=== PATIENT | male | born 1960 | race Caucasian/White ===

== ENCOUNTER 2020-11-10 18:41 | Observation (INO) ==
[2020-11-10] MEDS ORDERED: Naloxone 0.4 MG/ML INJ IVP PRN (20:42)
[2020-11-10] MEDS ORDERED: Melatonin 3 MG TABLET PO PRN (20:42)
[2020-11-10] MEDS ORDERED: Ondansetron 4 MG/2 ML VIAL IVP PRN (20:42)
[2020-11-10] MEDS: *HR* HYDROcodone/Acet 5/325 mg TABLET PO PRN (22:52)
[2020-11-10] MEDS: Fluticasone Propionate Nasal 50 MCG/SPRAY BOTTLE NS SCH (22:53)
[2020-11-11] MEDS ORDERED: D5% in Water 1,000 ML IVC PRN (00:04)
[2020-11-11] MEDS ORDERED: Dextrose Gel 15 GM/37.5 ML TUBE PO PRN ×2 (00:04)
[2020-11-11] MEDS ORDERED: *HR* Dextrose 50 % in Water (Vial) 50 ML VIAL IVP PRN (00:04)
[2020-11-11 04:38] LABS: Basophils # 0.1 K/mcL (0.0-0.2); Basophils % 0.6 %; Eosinophils # 0.2 K/mcL (0.0-0.6); Eosinophils % 2.4 %; Hemoglobin 14.3 g/dL (12.9-16.9); Immature Granulocytes % 0.6 % (0-4); Lymphocytes # 4.4 K/mcL (0.6-4.6); Lymphocytes % 44.9 %; Mean Corpuscular HGB Conc 32.5 g/dL (31.6-35.5); Mean Corpuscular Hemoglobin 27.8 pg (28.0-33.3); Mean Corpuscular Volume 85.4 fL (83.0-100.0); Mean Platelet Volume 8.8 fL (9.4-12.4); Monocytes # 0.9 K/mcL (0.0-1.3); Monocytes % 9.1 %; Neutrophils # 4.1 K/mcL (1.6-8.9); Platelet Count 375 K/mcL (140-400); Red Blood Count 5.15 M/mcL (4.19-5.50); Red Cell Distribution Width 15.3 % (11.5-14.5); Segmented Neutrophils % 42.4 %; White Blood Count 9.7 K/mcL (4.3-11.1)
[2020-11-11 04:43] LABS: INR 1.1; Prothrombin Time 12.4 Seconds (9.4-12.1)
[2020-11-11 05:00] LABS: BUN/Creatinine Ratio 28 (6-26); Blood Urea Nitrogen 16 mg/dL (8-23); Carbon Dioxide 24 mEq/L (23-29); Chloride 103 mEq/L (98-107); Glucose 195 mg/dL (70-105); Magnesium 1.9 mg/dL (1.6-2.6); Osmolality,Calculated 283 (280-300); Potassium 4.4 mEq/L (3.5-5.1); Sodium 133 mEq/L (136-145); eGFR For African Americans > 60 (> 60); eGFR For Non-African Americans > 60 (> 60)
[2020-11-11] MEDS: *HR* HYDROcodone/Acet 5/325 mg TABLET PO PRN ×4 (05:00→20:02)
[2020-11-11 05:03] LABS: Estimated Average Glucose 235 mg/dl; Hemoglobin A1C 9.8 %
[2020-11-11] MEDS: Insulin LISPRO 300 UNITS/3 ML VIAL SUBQ SCH ×4 (05:54→20:04)
[2020-11-11] MEDS: Loratadine 10 MG TABLET PO SCH (08:12)
[2020-11-11] MEDS: Aspirin Enteric Coated 81 MG Tablet PO SCH (08:12)
[2020-11-11] MEDS: amLODIPine 5 MG TABLET PO SCH (08:12)
[2020-11-11] MEDS: Acetaminophen 325 MG TABLET PO PRN (12:01)
[2020-11-11] MEDS: Doxycycline 100 MG CAPSULE PO SCH (20:02)
[2020-11-11] MEDS: Fluticasone Propionate Nasal 50 MCG/SPRAY BOTTLE NS SCH (20:04)
[2020-11-12] MEDS: *HR* HYDROcodone/Acet 5/325 mg TABLET PO PRN ×4 (00:07→20:31)
[2020-11-12 02:49] LABS: Basophils # 0.1 K/mcL (0.0-0.2); Basophils % 0.6 %; Eosinophils # 0.2 K/mcL (0.0-0.6); Eosinophils % 2.3 %; Hematocrit 42.2 % (37.5-50.1); Immature Granulocytes % 0.5 % (0-4); Lymphocytes % 44.3 %; Mean Corpuscular HGB Conc 33.2 g/dL (31.6-35.5); Mean Corpuscular Hemoglobin 28.3 pg (28.0-33.3); Mean Corpuscular Volume 85.3 fL (83.0-100.0); Mean Platelet Volume 8.7 fL (9.4-12.4); Monocytes % 10.6 %; Platelet Count 356 K/mcL (140-400); Red Blood Count 4.95 M/mcL (4.19-5.50); Red Cell Distribution Width 15.5 % (11.5-14.5); Segmented Neutrophils % 41.7 %; White Blood Count 9.6 K/mcL (4.3-11.1)
[2020-11-12 02:51] LABS: Lymphocytes # 4.3 K/mcL (0.6-4.6)
[2020-11-12] MEDS: Acetaminophen 325 MG TABLET PO PRN (03:03)
[2020-11-12 03:17] LABS: BUN/Creatinine Ratio 26 (6-26); Blood Urea Nitrogen 16 mg/dL (8-23); Calcium 8.6 mg/dL (8.6-10.3); Carbon Dioxide 24 mEq/L (23-29); Chloride 102 mEq/L (98-107); Glucose 216 mg/dL (70-105); Osmolality,Calculated 282 (280-300); Potassium 4.2 mEq/L (3.5-5.1); Sodium 132 mEq/L (136-145); eGFR For African Americans > 60 (> 60); eGFR For Non-African Americans > 60 (> 60)
[2020-11-12] MEDS: *HR* Heparin 5,000 UNIT/ML VIAL SQ SCH ×2 (05:28→17:05)
[2020-11-12] MEDS: Aspirin Enteric Coated 81 MG Tablet PO SCH (07:53)
[2020-11-12] MEDS: amLODIPine 5 MG TABLET PO SCH (07:54)
[2020-11-12] MEDS: Loratadine 10 MG TABLET PO SCH (07:54)
[2020-11-12] MEDS: Doxycycline 100 MG CAPSULE PO SCH (07:54)
[2020-11-12] MEDS: Insulin LISPRO 300 UNITS/3 ML VIAL SUBQ SCH ×4 (07:55→20:21)
[2020-11-12] MEDS ORDERED: Doxycycline 100 MG in 0.9 % Sodium Chloride Mini Bag 100 ML IVPB SCH (09:00)
[2020-11-12] MEDS: Doxycycline 100 MG in 0.9 % Sodium Chloride Mini Bag 100 ML IVPB SCH (20:17)
[2020-11-12] MEDS: Fluticasone Propionate Nasal 50 MCG/SPRAY BOTTLE NS SCH (20:21)
[2020-11-12] MEDS ORDERED: Insulin DETEMIR 100 UNIT/ML X5UNITS SUBQ SCH ×2 (21:00→22:30)
[2020-11-12] MEDS ORDERED: risperiDONE 1 MG TABLET PO SCH (21:00)
[2020-11-13] MEDS: Doxycycline 100 MG in 0.9 % Sodium Chloride Mini Bag 100 ML IVPB SCH (05:06)
[2020-11-13] MEDS: *HR* Heparin 5,000 UNIT/ML VIAL SQ SCH (05:07)
[2020-11-13] MEDS: Aspirin Enteric Coated 81 MG Tablet PO SCH (08:33)
[2020-11-13] MEDS: amLODIPine 5 MG TABLET PO SCH (08:34)
[2020-11-13] MEDS: Loratadine 10 MG TABLET PO SCH (08:34)
[2020-11-13] MEDS: Insulin LISPRO 300 UNITS/3 ML VIAL SUBQ SCH ×2 (08:35→11:51)
[2020-11-13 10:45] VITALS: O2SAT 96
[2020-11-13] MEDS: *HR* HYDROcodone/Acet 5/325 mg TABLET PO PRN (11:55)
[2020-11-13 14:03] VITALS: BP 119/74; PULSE 85; TEMP 98.4
== END 2020-11-13 16:31 | disposition home or self-care (01) ==
LOC: 3NENU → SUATTDRO 19:31
PROVIDERS: ADMIT Pharmacist; ATTEND Internal Medicine

== ENCOUNTER 2021-07-19 16:43 | Inpatient (IN) ==
[2021-07-19 17:57] LABS: Basophils # 0.1 K/mcL (0.0-0.2); Basophils % 0.5 %; Eosinophils # 0.2 K/mcL (0.0-0.6); Immature Granulocytes % 0.6 % (0-4); Lymphocytes # 4.3 K/mcL (0.6-4.6); Mean Corpuscular HGB Conc 32.6 g/dL (31.6-35.5); Mean Corpuscular Hemoglobin 27.2 pg (28.0-33.3); Mean Corpuscular Volume 83.3 fL (83.0-100.0); Mean Platelet Volume 9.9 fL (9.4-12.4); Monocytes # 1.1 K/mcL (0.0-1.3); Monocytes % 11.4 %; Neutrophils # 3.9 K/mcL (1.6-8.9); Platelet Count 261 K/mcL (140-400); Red Blood Count 5.52 M/mcL (4.19-5.50); Red Cell Distribution Width 14.9 % (11.5-14.5); Segmented Neutrophils % 40.5 %; White Blood Count 9.5 K/mcL (4.3-11.1)
[2021-07-19 18:17] LABS: Alanine Aminotransferase 54 Units/L (7-52); Albumin 3.2 g/dL (3.5-5.7); Albumin/Globulin Ratio 0.8 (1.1-2.2); Alkaline Phosphatase 118 Units/L (34-104); Aspartate Amino Transferase 47 Units/L (13-39); BUN/Creatinine Ratio 22 (6-26); Bilirubin,Total 0.2 mg/dL (0.3-1.0); Blood Urea Nitrogen 17 mg/dL (8-23); Calcium 8.6 mg/dL (8.6-10.3); Carbon Dioxide 26 mEq/L (23-29); Chloride 106 mEq/L (98-107); Glucose 255 mg/dL (70-105); Osmolality,Calculated 282 (280-300); Potassium 3.9 mEq/L (3.5-5.1); Sodium 131 mEq/L (136-145); Total Protein 7.2 g/dL (6.4-8.9); eGFR For African Americans > 60 (> 60); eGFR For Non-African Americans > 60 (> 60)
[2021-07-19] MEDS ORDERED: Vancomycin 1,250 MG/262.5 ML IV.SOLN IVPB ONE (19:42)
[2021-07-19] MEDS ORDERED: Piperacillin/Tazobactam 3.375 GM in 0.9 % Sodium Chloride Mini Bag 100 ML IVPB ONE (19:42)
[2021-07-19] MEDS ORDERED: Naloxone 0.4 MG/ML INJ IVP PRN (20:28)
[2021-07-19] MEDS ORDERED: Acetaminophen 325 MG TABLET PO PRN (20:28)
[2021-07-19] MEDS ORDERED: Ondansetron 4 MG/2 ML VIAL IVP PRN (20:28)
[2021-07-19] MEDS ORDERED: *HR* Dextrose 50 % in Water (Syg) 50 ML SYRINGE IVP PRN (20:31)
[2021-07-19] MEDS ORDERED: D5% in Water 1,000 ML IVC PRN (20:31)
[2021-07-19] MEDS ORDERED: Dextrose 4 GM Chewable Tablets PO PRN ×2 (20:31)
[2021-07-20] MEDS: Piperacillin/Tazobactam 3.375 GM in 0.9 % Sodium Chloride Mini Bag 100 ML IVPB SCH ×3 (04:14→19:11)
[2021-07-20 05:56] LABS: Basophils # 0.1 K/mcL (0.0-0.2); Basophils % 0.8 %; Eosinophils # 0.2 K/mcL (0.0-0.6); Eosinophils % 2.4 %; Hematocrit 45.5 % (37.5-50.1); Hemoglobin 14.9 g/dL (12.9-16.9); Immature Granulocytes % 0.5 % (0-4); Lymphocytes # 3.4 K/mcL (0.6-4.6); Mean Corpuscular HGB Conc 32.7 g/dL (31.6-35.5); Mean Corpuscular Volume 82.4 fL (83.0-100.0); Mean Platelet Volume 9.6 fL (9.4-12.4); Monocytes % 10.4 %; Neutrophils # 4.5 K/mcL (1.6-8.9); Platelet Count 278 K/mcL (140-400); Red Blood Count 5.52 M/mcL (4.19-5.50); Red Cell Distribution Width 14.9 % (11.5-14.5); Segmented Neutrophils % 48.9 %; White Blood Count 9.2 K/mcL (4.3-11.1)
[2021-07-20 06:08] LABS: Prothrombin Time 10.7 Seconds (9.4-12.1)
[2021-07-20 06:09] LABS: Alanine Aminotransferase 57 Units/L (7-52); Albumin 3.2 g/dL (3.5-5.7); Albumin/Globulin Ratio 0.8 (1.1-2.2); Alkaline Phosphatase 111 Units/L (34-104); Aspartate Amino Transferase 53 Units/L (13-39); BUN/Creatinine Ratio 19 (6-26); Bilirubin,Direct 0.1 mg/dL (0.0-0.2); Bilirubin,Indirect 0.3 mg/dL (0.0-1.0); Bilirubin,Total 0.4 mg/dL (0.3-1.0); Blood Urea Nitrogen 14 mg/dL (8-23); Calcium 8.6 mg/dL (8.6-10.3); Carbon Dioxide 23 mEq/L (23-29); Chloride 101 mEq/L (98-107); Globulin 4.2 g/dL (2.4-3.5); Glucose 308 mg/dL (70-105); Magnesium 1.8 mg/dL (1.6-2.6); Osmolality,Calculated 286 (280-300); Phosphorous 2.7 mg/dL (2.7-4.5); Potassium 4.1 mEq/L (3.5-5.1); Sodium 132 mEq/L (136-145); Total Protein 7.4 g/dL (6.4-8.9); eGFR For African Americans > 60 (> 60); eGFR For Non-African Americans > 60 (> 60)
[2021-07-20 07:45] LABS: Estimated Average Glucose 326 mg/dl
[2021-07-20] MEDS ORDERED: *HR* OxyCODONE Immed Rel 5 MG TABLET PO PRN (08:31)
[2021-07-20] MEDS: Folic Acid 1 MG TABLET PO SCH (08:55)
[2021-07-20] MEDS: Benzonatate 100 MG CAPSULE PO SCH ×4 (08:56→21:19)
[2021-07-20] MEDS: Aspirin 325 MG TABLET PO SCH (08:56)
[2021-07-20] MEDS: amLODIPine 5 MG TABLET PO SCH (08:56)
[2021-07-20] MEDS: Insulin LISPRO 300 UNITS/3 ML VIAL SUBQ SCH ×3 (08:57→16:43)
[2021-07-20] MEDS: Loratadine 10 MG TABLET PO SCH (08:58)
[2021-07-20] MEDS ORDERED: Cholecalciferol (D-3) 1,000 UNIT (25MCG) TABLET PO SCH (09:00)
[2021-07-20 09:07] LABS: Bilirubin,Urine Negative (Negative); Blood,Urine Negative (Negative); Clarity,Urine Clear (Clear); Color,Urine Light-Yellow (Yellow); Glucose,Urine (UA) >=1000 mg/dL (Normal); Ketones,Urine Negative (Negative); Leukocyte Esterase,Urine Negative (Negative); Nitrite,Urine Negative (Negative); PH,Urine 6.5 pH Units (5.0-8.0); Protein,Urine Trace mg/dL (Neg-Trace); RBC,Urine 0-3 per hpf (0-3); Specific Gravity,Urine 1.029 (1.010-1.025); Urobilinogen,Urine Normal (Normal); WBC,Urine 0-3 per hpf (0-3)
[2021-07-20 09:13] LABS: C-Reactive Protein < 5 mg/L (Less than 10)
[2021-07-20] MEDS: Vancomycin 1,250 MG/262.5 ML IV.SOLN IVPB SCH ×2 (10:07→22:47)
[2021-07-20] MEDS ORDERED: Isovue-370 500 ML BOTTLE IVP ONE (10:31)
[2021-07-20] MEDS ORDERED: *HR* Enoxaparin 80 MG/0.8 ML SYRINGE SQ ONE ×2 (10:42→18:45)
[2021-07-20] MEDS ORDERED: Melatonin 3 MG TABLET PO SCH (21:00)
[2021-07-20] MEDS ORDERED: risperiDONE 1 MG TABLET PO SCH (21:00)
[2021-07-20] MEDS ORDERED: Insulin LISPRO 300 UNITS/3 ML VIAL SUBQ SCH (21:00)
[2021-07-20] MEDS ORDERED: traZODone 50 MG TABLET PO SCH (21:00)
[2021-07-20] MEDS ORDERED: NON-FORMULARY MEDICATION 1 EACH EACH (Atorvastatin Calcium [Lipitor] 80 MG Tablet) PO SCH (21:00)
[2021-07-20] MEDS: Cholecalciferol (D-3) 1,000 UNIT (25MCG) TABLET PO SCH (21:19)
[2021-07-20] MEDS: *HR* Enoxaparin 100 MG/ML SYRINGE SQ SCH (21:19)
[2021-07-20] MEDS: SALSALATE 500 MG PO SCH (22:43)
[2021-07-21 03:05] LABS: Basophils # 0.1 K/mcL (0.0-0.2); Basophils % 0.9 %; Eosinophils # 0.2 K/mcL (0.0-0.6); Eosinophils % 2.4 %; Hematocrit 43.2 % (37.5-50.1); Hemoglobin 14.3 g/dL (12.9-16.9); Immature Granulocytes % 0.4 % (0-4); Lymphocytes # 4.1 K/mcL (0.6-4.6); Lymphocytes % 48.5 %; Mean Corpuscular HGB Conc 33.1 g/dL (31.6-35.5); Mean Corpuscular Hemoglobin 27.3 pg (28.0-33.3); Mean Corpuscular Volume 82.4 fL (83.0-100.0); Mean Platelet Volume 9.7 fL (9.4-12.4); Monocytes # 0.8 K/mcL (0.0-1.3); Monocytes % 9.7 %; Neutrophils # 3.2 K/mcL (1.6-8.9); Platelet Count 267 K/mcL (140-400); Red Blood Count 5.24 M/mcL (4.19-5.50); Red Cell Distribution Width 14.7 % (11.5-14.5); Segmented Neutrophils % 38.1 %; White Blood Count 8.4 K/mcL (4.3-11.1)
[2021-07-21 03:27] LABS: BUN/Creatinine Ratio 20 (6-26); Blood Urea Nitrogen 16 mg/dL (8-23); Calcium 8.3 mg/dL (8.6-10.3); Carbon Dioxide 23 mEq/L (23-29); Chloride 102 mEq/L (98-107); Glucose 314 mg/dL (70-105); Osmolality,Calculated 287 (280-300); Potassium 3.9 mEq/L (3.5-5.1); Sodium 132 mEq/L (136-145); eGFR For African Americans > 60 (> 60); eGFR For Non-African Americans > 60 (> 60)
[2021-07-21] MEDS: Piperacillin/Tazobactam 3.375 GM in 0.9 % Sodium Chloride Mini Bag 100 ML IVPB SCH ×2 (04:24→11:39)
[2021-07-21] MEDS: *HR* Enoxaparin 100 MG/ML SYRINGE SQ SCH (06:29)
[2021-07-21] MEDS: Insulin LISPRO 300 UNITS/3 ML VIAL SUBQ SCH ×2 (07:58→11:39)
[2021-07-21] MEDS: Benzonatate 100 MG CAPSULE PO SCH ×2 (07:59→11:38)
[2021-07-21] MEDS: Loratadine 10 MG TABLET PO SCH (07:59)
[2021-07-21] MEDS: Aspirin 325 MG TABLET PO SCH (07:59)
[2021-07-21] MEDS: Cholecalciferol (D-3) 1,000 UNIT (25MCG) TABLET PO SCH (07:59)
[2021-07-21] MEDS: amLODIPine 5 MG TABLET PO SCH (07:59)
[2021-07-21] MEDS: Folic Acid 1 MG TABLET PO SCH (07:59)
[2021-07-21] MEDS: SALSALATE 500 MG PO SCH (08:00)
[2021-07-21] MEDS ORDERED: Aspirin 325 MG TABLET PO SCH (09:00)
[2021-07-21] MEDS: Vancomycin 1,250 MG/262.5 ML IV.SOLN IVPB SCH (09:27)
[2021-07-21 15:13] LABS: Adenovirus Not Detected (Not Detect); Coronavirus 229E Not Detected (Not Detect); Coronavirus HKU1 Not Detected (Not Detect); Coronavirus NL63 Not Detected (Not Detect); Coronavirus OC43 Not Detected (Not Detect); SARS-CoV-2 Not Detected (Not Detect)
[2021-07-21 15:14] LABS: Bordetella Pertussis Not Detected (Not Detect); Chlamydophila pneumoniae Not Detected (Not Detect); Human Metapneumovirus Not Detected (Not Detect); Human Rhinovirus/Enterovirus Not Detected (Not Detect); Influenza A Subtype 2009 H1 Not Detected (Not Detect); Influenza B Not Detected (Not Detect); Mycoplasma pneumoniae Not Detected (Not Detect); Parainfluenza Virus 1 Not Detected (Not Detect); Parainfluenza Virus 2 Not Detected (Not Detect); Parainfluenza Virus 3 Not Detected (Not Detect); Parainfluenza Virus 4 Not Detected (Not Detect); Respiratory Syncytial Virus Not Detected (Not Detect)
[2021-07-21 17:58] VITALS: BP 139/76; PULSE 83; TEMP 98; O2SAT 98
[2021-07-21] MEDS ORDERED: Insulin DETEMIR 100 UNIT/ML X5UNITS SUBQ SCH (21:00)
== END 2021-07-21 18:03 | DRG 603 ==
LOC: 3ANU 16:43 → EMEROOARM 16:43 → SUATTDRO 20:12 → 3ANU 20:53
PROVIDERS: ADMIT Internal Medicine; ATTEND Family Medicine